=== PATIENT | female | born 1990 | race Two or more races ===

== ENCOUNTER 2023-04-22 15:35 | Emergency (ER) | payer OTHER ==
[~2023-04-22] VITALS: Ht 165.1 cm; Wt 59.0 kg
== END 2023-04-22 19:49 | disposition home or self-care (01) ==
LOC: ER 15:35
DX: R53.1 Weakness (principal); Z20.822 Contact with and (suspected) exposure to COVID-19; Z88.8 Allergy status to other drugs, medicaments and biological substances